=== PATIENT | female | born 1990 | race Caucasian/White ===

== ENCOUNTER 2017-01-28 00:45 | Observation (INO) | payer SELFPAY ==
[2017-01-28] VITALS (9 sets, daily range): BP systolic 118–150; BP diastolic 61–81; PULSE 61–85; RESP 14–20; TEMP 96.7–98.5; O2SAT 98–100
[~2017-01-28] VITALS: Ht 180.3 cm; Wt 118.0 kg
[~2017-01-28 00:45] MED LIST: Z.0.NO CURRENT MEDS
[2017-01-28] MEDS ORDERED: SODIUM CHLOR 0.9% 1000 ML INJ 1,000 ML IV SCH (02:48)
--- NOTE | 2017-01-28 02:52 | PD ---
HPI Chief Complaint: Abdominal Pain Time Seen by Provider: 02:48 Travel History International Travel<30 days: No Contact w/Intl Traveler<30days: No Traveled to known affect area: No History of Present Illness HPI 26-year-old female presents to the emergency department by private transportation for complaint of generalized abdominal pain 40 minutes. Symptoms began just prior to arrival to the emergency department. Patient's had nausea without vomiting. No hematemesis no coffee-ground emesis. Patient denies melena hematochezia or constipation or diarrhea. No dysuria frequency or urgency. Prior otherwise no surgeries. Patient states that she has been told the past that she might have gallbladder issues but did not have this evaluated further. Patient is visiting from [place]. Last menstrual period was 2 weeks ago and normal for her patient denies . Patient's had no fever chills. Patient is unable to identify exacerbating or alleviating factors. PFSH Past Medical History Narrative Medical Gallbladder disease, tonsillectomy; no tobacco use; nursing notes reviewed Diminished Hearing: No Gastrointestinal Disorders: Yes (CHOLECYSTITIS) Tetanus Vaccination: Unknown ?: Not LMP: 01/17/17 : 1 Para: 1 Miscarriage: 0 : 0 Past Surgical History Section: Yes (2012) Tonsillectomy: Yes (2002) Social History Alcohol Use: No Tobacco Use: No Substance Use: No Allergies-Medications (Allergen,Severity, Reaction): Coded Allergies: Bactrim (Verified Allergy, Mild, 05/04/07) Reported Meds & Prescriptions Reported Meds & Active Scripts Active Reported No Current Meds (Miscellaneous Medication) Misc Review of Systems Except as stated in HPI: all other systems reviewed are Neg General / Constitutional: No: Fever, Chills HENT: No: Congestion Cardiovascular: No: Chest Pain or Discomfort Respiratory: No: Shortness of Breath Gastrointestinal: Positive: Nausea, Abdominal Pain, No: Vomiting Genitourinary: No: Dysuria, Flank Pain Musculoskeletal: No: Myalgias, Arthralgias Skin: No Rash Neurologic: No: Weakness Psychiatric: No: Anxiety Hematologic/Lymphatic: No: Lymph Node Enlargement Physical Exam Narrative GENERAL: Well-developed well-nourished female in no acute distress no respiratory distress with pallor. SKIN: Warm and dry. HEAD: Normocephalic. EYES: No scleral icterus. No injection or drainage. NECK: Supple, trachea midline. No JVD or lymphadenopathy. CARDIOVASCULAR: Regular rate and rhythm without murmurs, gallops, or rubs. RESPIRATORY: Breath sounds equal bilaterally. No accessory muscle use. GASTROINTESTINAL: Abdomen soft, diffusely tender to palpation without guarding or rebound, nondistended. MUSCULOSKELETAL: No cyanosis, or edema. BACK: Nontender without obvious deformity. No CVA tenderness. Data Data Last Documented VS Vital Signs Date Time Temp Pulse Resp B/P Pulse Ox O2 Delivery O2 Flow Rate FiO2 01/28/17 04:33 14 01/28/17 02:00 98.5 78 131/71 98 Room Air Orders Complete Blood Count With Diff (01/28/17 02:48) Comprehensive Metabolic Panel (01/28/17 02:48) Lipase (01/28/17 02:48) Urinalysis - C+S If Indicated (01/28/17 02:48) Ct Abd/Pel W Iv Contrast(Rout) (01/28/17 02:48) Iv Access Insert/Monitor (01/28/17 02:48) Ecg Monitoring (01/28/17 02:48) Oximetry (01/28/17 02:48) Ondansetron Inj (Zofran Inj) (01/28/17 03:00) Sodium Chlor 0.9% 1000 Ml Inj (Ns 1000 M (01/28/17 02:48) Sodium Chloride 0.9% Flush (Ns Flush) (01/28/17 03:00) Ed Urine Pregnancytest Poc (01/28/17 02:48) Hydromorphone Pf Inj (Dilaudid Pf Inj) (01/28/17 03:00) Urine Culture (01/28/17 03:30) Iohexol 350 Inj (Omnipaque 350 Inj) (01/28/17 05:25) Piperacil-Tazo 3.375 Gm Premix (Zosyn 3. (01/28/17 06:15) NPO (01/28/17 06:11) Us Abdomen Gallbladder (01/28/17 06:11) Us Pelvis Comp W Dop Transvag (01/28/17 06:11) Labs Laboratory Tests Test 01/28/17 01/28/17 03:30 03:40 Urine Color YELLOW Urine Turbidity CLOUDY Urine pH 5.0 Urine Specific [place] 1.031 Urine Protein TRACE mg/dL Urine Glucose (UA) NEG mg/dL Urine Ketones TRACE mg/dL Urine Occult Blood LARGE Urine Nitrite POS Urine Bilirubin NEG Urine Leukocyte Esterase NEG Urine RBC 10-14 /hpf Urine WBC 0-2 /hpf Urine Squamous Epithelial > 8 /hpf Cells Urine Calcium Oxalate Crystals MANY /hpf Urine Bacteria MANY /hpf Microscopic Urinalysis Comment CULTURE INDICATED White Blood Count 16.2 TH/MM3 Red Blood Count 4.79 MIL/MM3 Hemoglobin 12.6 GM/DL Hematocrit 37.2 % Mean Corpuscular Volume 77.7 FL Mean Corpuscular Hemoglobin 26.3 PG Mean Corpuscular Hemoglobin 33.8 % Concent Red Cell Distribution Width 13.2 % Platelet Count 287 TH/MM3 Mean Platelet Volume 7.1 FL Neutrophils (%) (Auto) 86.9 % Lymphocytes (%) (Auto) 8.0 % Monocytes (%) (Auto) 4.8 % Eosinophils (%) (Auto) 0.0 % Basophils (%) (Auto) 0.3 % Neutrophils # (Auto) 14.1 TH/MM3 Lymphocytes # (Auto) 1.3 TH/MM3 Monocytes # (Auto) 0.8 TH/MM3 Eosinophils # (Auto) 0.0 TH/MM3 Basophils # (Auto) 0.0 TH/MM3 CBC Comment DIFF FINAL Differential Comment Sodium Level 142 MEQ/L Potassium Level 3.4 MEQ/L Chloride Level 107 MEQ/L Carbon Dioxide Level 26.2 MEQ/L Anion Gap 9 MEQ/L Blood Urea Nitrogen 12 MG/DL Creatinine 0.68 MG/DL Estimat Glomerular Filtration 106 ML/MIN Rate Random Glucose 120 MG/DL Calcium Level 8.5 MG/DL Total Bilirubin 0.6 MG/DL Aspartate Amino Transf 75 U/L (AST/SGOT) Alanine Aminotransferase 45 U/L (ALT/SGPT) Alkaline Phosphatase 102 U/L Total Protein 7.1 GM/DL Albumin 3.3 GM/DL Lipase 180 U/L [facility] Medical Decision Making Medical Screen Exam Complete: Yes Emergency Medical Condition: Yes Medical Record Reviewed: Yes Interpretation(s) CBC & BMP Diagram 01/28/17 03:40 Last Impressions Abdomen/Pelvis CT 01/28/17 0248 Signed Impressions: Service Date/Time: Saturday, January 28, 2017 05:11 - CONCLUSION: 1. There are 2 findings in the right lower quadrant that potentially could be a source for pain. One of the findings is a right ovarian cystic lesion measuring 5.2 cm. The other is a mildly distended appendiceal tip containing high density material. There is questionable mild inflammation adjacent to these structures in the right lower quadrant. Suggest correlation for right lower quadrant pain or clinical findings which could indicate acute appendicitis. 2. There is a small volume of free fluid in the pelvis. 3. There is a lobulated fluid density structure abutting the right heart measuring 3.6 x 1.8 cm. Imaging features favor a pericardial cyst. Consider follow-up to confirm stability if no prior imaging studies are available. 4. Stones versus sludge is layering within the gallbladder. However, there are no inflammatory changes associated with the gallbladder. Abdi Holman MD Vital Signs Date Time Temp Pulse Resp B/P Pulse Ox O2 Delivery O2 Flow Rate FiO2 01/28/17 04:33 14 01/28/17 02:00 98.5 78 14 131/71 98 Room Air 01/28/17 00:55 97.6 75 15 118/61 100 01/28/17 00:52 98.1 85 20 123/78 99 Room Air Differential Diagnosis Abdominal pain, cholecystitis, choledocholithiasis, pancreatitis, peptic ulcer disease, gastritis, atypical kidney stones, Narrative Course IV access obtained specimens collected and sent for resulting imaging studies ordered patient drilling fluids specialist normal saline along with Dilaudid 0.5 mg IV and Zofran 4 mg IV Patient resting comfortably after IV Dilaudid waiting on lab results and imaging study CBC is automated differential shows leukocytosis with left shift also notes abnormal urinalysis however patient's pain greater than found by abnormal urinalysis; CT imaging study pending CT resulted at 5:55 AM concerning for appendicitis noted to have ovarian cyst gallbladder sludge; Zosyn 3.375 g IV piggyback ordered patient Nothing by mouth ; case discussed with on-call general surgeon @6:25 AM general surgery crest patient to be transferred to [facility] for appendectomy; patient informed of plan to defer any ultrasound studies and will send to [facility] for general surgery evaluation and appendectomy. Patient is agreeable with plan and understands need for transfer. Physician Communication Physician Communication @ [phone] discussed with Dr Hidalgo --> US; reviewed CT --send for appy Diagnosis Primary Impression: Abdominal pain Qualified Code: R10.9 - Abdominal pain, unspecified location Additional Impressions: Atypical appendicitis Ovarian cyst Qualified Code: N83.201 - Cyst of right ovary Admitting Information Admitting Physician Requests: Observation Selina Guerrero MD Jan 28, 2017 02:52
[2017-01-28] MEDS ORDERED: HYDROmorphone HCL PF 1 MG/ML VIAL IV PUSH ONE (03:00)
[2017-01-28] MEDS ORDERED: ONDANSETRON HCL 4 MG/2 ML VIAL IVP ONE (03:00)
[2017-01-28] MEDS ORDERED: SODIUM CHLORIDE 0.9% FLUSH 10 ML FLUSH IV FLUSH PRN (03:00)
[2017-01-28 04:00] LABS: BLOOD, URINE LARGE (NEG); GLUCOSE,URINE NEG (NEG); KETONE, URINE TRACE mg/dL (NEG)
[2017-01-28 04:01] LABS: AUTOMATED NEUTROPHIL # 14.1 TH/MM3 (1.8-7.7); BASOPHIL % 0.3 % (0.0-2.0); HEMATOCRIT 37.2 % (35.0-46.0); LYMPHOCYTE # 1.3 TH/MM3 (1.0-4.8); MEAN CELL VOLUME 77.7 FL (80.0-100.0); MEAN CORPUSCULAR HEMOGLOBIN 26.3 PG (27.0-34.0); MEAN CORPUSCULAR HGB CONC 33.8 % (32.0-36.0); MONO % 4.8 % (0.0-8.0); NEUT % 86.9 % (16.0-70.0); PLATELET COUNT 287 TH/MM3 (150-450); RED BLOOD COUNT 4.79 MIL/MM3 (4.00-5.30); RED CELL DISTRIBUTION WIDTH 13.2 % (11.6-17.2); WHITE BLOOD COUNT 16.2 TH/MM3 (4.0-11.0)
[2017-01-28 04:02] LABS: HEMO FLAGS DIFF FINAL
[2017-01-28 04:05] LABS: NITRITE,URINE POS (NEG); URINE COLOR YELLOW (YELLW/STRAW)
[2017-01-28 04:06] LABS: BACTERIA, URINE MANY /hpf; CALCIUM OXALATE CRYSTALS,URINE MANY /hpf; COMMENT (UR) CULTURE INDICATED; CULTURE IF INDICATED CULTURE INDICATED; SQUAMOUS EPITHELIAL CELL URINE > 8 /hpf (0-5); WBC, URINE 0-2 /hpf (0-5)
[2017-01-28 04:08] LABS: CHLORIDE 107 MEQ/L (98-107); POTASSIUM 3.4 MEQ/L (3.5-5.1); SODIUM (NA) 142 MEQ/L (136-145)
[2017-01-28 04:11] LABS: ANION GAP 9 MEQ/L (5-15); BICARBONATE 26.2 MEQ/L (21.0-32.0); BLOOD UREA NITROGEN 12 MG/DL (7-18)
[2017-01-28 04:14] LABS: ALT (GPT) 45 U/L (10-53); AST (GOT) 75 U/L (15-37); GLOMERULAR FILTRATION RATE 106 ML/MIN (>89)
[2017-01-28 04:16] LABS: TOTAL BILIRUBIN ADULT 0.6 MG/DL (0.2-1.0)
[2017-01-28 04:17] LABS: ALKALINE PHOSPHATASE 102 U/L (45-117)
[2017-01-28] MEDS ORDERED: IOHEXOL 350 MG/ML 10 ML VIAL (for RAD DIAG) IV ONE (05:25)
--- NOTE | 2017-01-28 05:37 | RADHPO ---
EXAM DATE/TIME: 01/28/2017 05:11 [facility] COMPARISON: No previous studies available for comparison. INDICATIONS : Diffuse abdominal pain. IV CONTRAST: 95 cc Omnipaque 350 (iohexol) IV ORAL CONTRAST: No oral contrast ingested. RADIATION DOSE: 22.43 CTDIvol (mGy) MEDICAL HISTORY : None SURGICAL HISTORY : None. ENCOUNTER: Initial ACUITY: 1 day PAIN SCALE: 5/10 LOCATION: Abdomen. TECHNIQUE: Volumetric scanning of the abdomen and pelvis was performed. Using automated exposure control and ad justment of the mA and/or kV according to patient size, radiation dose was kept as low as reasonably achievable to obtain optimal diagnostic quality images. FINDINGS: LOWER LUNGS: The visualized lower lungs are clear. There is a lobulated fluid density structure abutting the right heart measuring 3.6 x 1.8 cm. LIVER: Homogeneous density without lesion. There is no dilation of the biliary tree. There are layering sto sara versus sludge within the gallbladder. No inflammatory changes are appreciated. SPLEEN: Normal size without lesion. PANCREAS: Within normal limits. KIDNEYS: Normal in size and shape. There is no mass, stone or hydronephrosis. ADRENAL GLANDS: Within normal limits. VASCULAR: There is no aortic aneurysm. BOWEL/MESENTERY: The stomach, small bowel, and colon demonstrate no acute abnormality. There is no free intraperitone al air. There is a small volume of free fluid in the pelvis. The proximal appendix appears normal but the distal tip of the appendix contains high density material and measures 8 mm in diameter. There i s questionable subtle induration of the fat in the right lower quadrant. ABDOMINAL WALL: Within normal limits. RETROPERITONEUM: There is no lymphadenopathy. BLADDER: No wall thickening or mass. REPRODUCTIVE: The uterus and left ovary demonstrate no abnormality. There is a cystic lesion associated with the ri ght ovary measuring 4.5 x 5.2 cm. INGUINAL: There is no lymphadenopathy or hernia. MUSCULOSKELETAL: No acute osseous abnormality is identified. CONCLUSION: 1. There are 2 findings in the right lower quadrant that potentially could be a source for pain. One of the findings is a right ovarian cystic lesion measuring 5.2 cm. The other is a mildly distended ap pendiceal tip containing high density material. There is questionable mild inflammation adjacent to t hese structures in the right lower quadrant. Suggest correlation for right lower quadrant pain or cli nical findings which could indicate acute appendicitis. 2. There is a small volume of free fluid in the pelvis. 3. There is a lobulated fluid density structure abutting the right heart measuring 3.6 x 1.8 cm. Imag ing features favor a pericardial cyst. Consider follow-up to confirm stability if no prior imaging st udies are available. 4. Stones versus sludge is layering within the gallbladder. However, there are no inflammatory change s associated with the gallbladder. Abdi Holman MD on January 28, 2017 at 5:28 Board Certified Radiologist. This report was verified electronically.
[2017-01-28] MEDS ORDERED: PIPERACIL-TAZO 3.375 GM PREMIX 50 ML IV ONE ×2 (06:15→14:30)
[2017-01-28] MEDS ORDERED: SODIUM CHLORIDE 0.9% FLUSH 10 ML FLUSH IVF PRN (06:45)
[2017-01-28] MEDS: SODIUM CHLORIDE 0.9% FLUSH 10 ML FLUSH IV FLUSH SCH ×2 (09:00→20:15)
[2017-01-28] MEDS ORDERED: DEXAMETHASONE SOD PHOS 4 MG/ML VIAL ONE (09:04)
[2017-01-28] MEDS ORDERED: ACETAMINOPHEN 1000 MG/100 ML VIAL IV ONE (09:04)
[2017-01-28] MEDS ORDERED: FAMOTIDINE 20 MG/2 ML VIAL ONE (09:05)
[2017-01-28] MEDS ORDERED: MIDAZOLAM HCL 2 MG/2 ML VIAL ONE ×2 (09:16→13:58)
--- NOTE | 2017-01-28 11:44 | MH ---
cc: JANNTE FRIEND M.D. DATE OF ADMISSION: 01/28/2017 REASON FOR ADMISSION Right-sided abdominal pain. HISTORY OF PRESENT ILLNESS The patient the 26-year-old female who presented having generalized abdominal pain for about 40 minutes yesterday evening she had nausea but then did report some vomiting. She had normal bowel movement on Monday. She reports that the pain is now on the right side of her abdomen. She did have a previous episode 2 years ago of epigastric pain and was told she should have her gallbladder out but did not have this performed as no other workup was done. She states that this pain is not in the epigastrium but is mostly on the right side but started out as generalized. The patient has had no problems with pelvic pain at any time she denies previous problems with PID or sexually transmitted diseases. Her LMP was 2 weeks ago and was normal for her. For her. PAST MEDICAL HISTORY: past medical history is significant for many years ago and tonsillectomy as a child. SOCIAL HISTORY: She does not smoke and alcohol. Does not drink. 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 PAST SURGICAL HISTORY: was in 2012 and tonsillectomy was not 2003. ALLERGIES BACTRIM MEDICATIONS: She is not currently on any medications. REVIEW OF SYSTEMS Review of systems is negative except as stated in HPI. Specifically; GENERAL: No fever or chills. HEAD, EYES, EARS, NOSE, AND THROAT: No congestion or sputum production. CARDIOVASCULAR SYSTEM: No chest pain or discomfort. RESPIRATORY: No shortness of breath or wheezing. GASTROINTESTINAL: is positive as indicated above. GENITOURINARY: No dysuria, flank pain or history of stones. MUSCULOSKELETAL: No myalgias or arthralgias. SKIN: No pruritus or rash. NEUROLOGIC: No weakness, diplopia, dizziness. PSYCHIATRIC: No anxiety or depression. HEMATOLOGIC: No lymph node enlargement. PHYSICAL EXAMINATION: IN GENERAL: The physical exam reveals an obese female in no acute distress. VITAL SIGNS: Blood pressure 102/78, pulse 71, respirations 22 and 98% sat on room air. Previous temperature was 97.4 sclerae anicteric. CHEST: Chest is clear to auscultation. CARDIOVASCULAR SYSTEM: Cardiac exam reveals regular rate and rhythm. ABDOMEN: The abdomen is soft with tenderness on the right side from the mid abdomen down into the right lower quadrant and the periumbilical region. There is no epigastric tenderness. There is a small amount of left lower quadrant pain without guarding. I cannot palpate any hernias. Pulses are present throughout. NEUROLOGIC: Exam is nonfocal. LABORATORY VALUES: The laboratory values demonstrate WBCs of 16.2, hemoglobin is 12.6, platelets at 187,000. Electrolytes, potassium is slightly low at 3.40 and creatinine are normal at 12 and 0.68, glucose is elevated at 120, AST is slightly elevated at 75, ALT is 45, alk phos 102, total bilirubin 0.6. ASSESSMENT Right-sided abdominal pain with possible appendicitis vs ovarian cyst symptoms. I have discussed options with the patient including continued observation versus laparoscopy with laparoscopic appendectomy. I have discussed risks of surgery including but not limited to bleeding, infection, need for drainage with abscess formation, adhesion formation and need for reoperation. I have discussed with the patient that she could be observed but if she does develop perforated appendicitis that this could cause additional complications including longer recovery time. She would rather proceed with surgery now to address issues and potentially have a expeditious discharge at a sooner time. Rather then with nonoperative management. MD SUDHEER Norman/curtis /10:58 AM /11:14 AM MTDEthan
[2017-01-28] MEDS ORDERED: KETOROLAC TROMETHAMINE 60 MG/2 ML (IM) VIAL IM ONE (12:00)
[2017-01-28] MEDS ORDERED: PROPOFOL 200 MG/20 ML AMP IV ONE (12:00)
[2017-01-28] MEDS ORDERED: SUGAMMADEX SODIUM 200 MG/2 ML VIAL IV PUSH ONE ×2 (12:00)
[2017-01-28] MEDS ORDERED: ONDANSETRON HCL 4 MG/2 ML VIAL IV PUSH ONE (12:00)
[2017-01-28] MEDS ORDERED: INSULIN HUMAN REGULAR 1,000 UNITS/10 ML VIAL SQ PRN (13:00)
[2017-01-28] MEDS ORDERED: LACTATED RINGER'S 1000 ML IV PRN (13:00)
[2017-01-28] MEDS ORDERED: SODIUM CHLORID 0.9% 500 ML IV PRN (13:00)
[2017-01-28] MEDS ORDERED: LACTATED RINGER'S 1000 ML INJ 1,000 ML IV SCH (13:00)
[2017-01-28] MEDS ORDERED: METOPROLOL TARTRATE 25 MG TAB PO PRN (13:00)
[2017-01-28] MEDS ORDERED: BUPIVACAINE/EPINEPHRINE 0.5% PF 30 ML VIAL ONE (14:06)
--- NOTE | 2017-01-28 15:41 | HHI.PR ---
Immediate Post Op Note Procedure Date: Jan 28, 2017 Pre Op Diagnosis: abdominal and pelvic pain r/o appendicitis Post Op Diagnosis: hemoperitoneum secondary to ruptured LEFT ovarian cyst Surgeon: Oseas Carrasquillo Visual Lead(s): bria Procedure: diagnostic laparoscopy, lap appy, evacuation of hemoperitoneum Findings: 100 cc blood from cyst, slightly thickened distal appendix Specimen(s) removed: appendix Anesthesia: General Drains: None IVF Patient to: PACU Patient Condition: Good Oseas Carrasquillo MD Jan 28, 2017 15:41
[2017-01-28] MEDS ORDERED: ONDANSETRON HCL 4 MG/2 ML VIAL IV PRN (15:45)
[2017-01-28] MEDS ORDERED: NALOXONE HCL 0.4 MG/ML AMP IV PRN (15:45)
[2017-01-28] MEDS ORDERED: ACETAMINOPHEN/HYDROcodone 325 MG/5 MG TAB PO PRN ×2 (15:45)
[2017-01-28] MEDS ORDERED: SODIUM CHLORIDE 0.9% FLUSH 5 ML FLUSH IVF PRN (15:45)
[2017-01-28] MEDS ORDERED: KETOROLAC TROMETHAMINE 30 MG/ML (IVP) VIAL IVP PRN (15:45)
[2017-01-28] MEDS ORDERED: MORPHINE SULFATE 8 MG/ML INJ IV PUSH PRN (15:45)
[2017-01-28] MEDS ORDERED: Post-op Orders (for Pharmacy) MISC XX ONE (15:45)
[2017-01-28] MEDS ORDERED: diphenhydrAMINE HCL 25 MG CAP PO PRN (15:45)
[2017-01-28] MEDS ORDERED: fentaNYL CITRATE 250 MCG/5 ML AMP ONE (15:54)
[2017-01-28] MEDS: SODIUM CHLOR 0.9% 1000 ML INJ 1,000 ML IV SCH (16:15)
[2017-01-28] MEDS ORDERED: DO NOT ADM ANY ANTICOAGULANT DRUGS PRN (17:00)
[2017-01-28 17:29] LABS: CHLAMYDIA PCR NOT DETECTED (NOT DETECT); NEISSERIA PCR NOT DETECTED (NOT DETECT)
[2017-01-28] MEDS: SODIUM CHLORIDE 0.9% FLUSH 5 ML FLUSH IVF SCH (21:26)
[2017-01-28] MEDS: MORPHINE SULFATE 4 MG/ML INJ IV PUSH PRN (22:17)
[2017-01-29] VITALS: BP 104/55; PULSE 72; RESP 18; TEMP 97.2; O2SAT 97
[2017-01-29] MEDS: SODIUM CHLOR 0.9% 1000 ML INJ 1,000 ML IV SCH ×2 (01:36→08:04)
[2017-01-29 04:00] VITALS: BP 114/56; PULSE 77; RESP 16; TEMP 96.1; O2SAT 97
[2017-01-29] MEDS: SODIUM CHLORIDE 0.9% FLUSH 5 ML FLUSH IVF SCH (07:00)
[2017-01-29 07:51] VITALS: BP 119/62; PULSE 70; RESP 17; TEMP 96.2; O2SAT 100
[2017-01-29] MEDS: SODIUM CHLORIDE 0.9% FLUSH 10 ML FLUSH IV FLUSH SCH (08:01)
[2017-01-29] MEDS: MORPHINE SULFATE 4 MG/ML INJ IV PUSH PRN (09:24)
[2017-01-29] MEDS ORDERED: NORC5TAB PO (10:00)
--- NOTE | 2017-01-29 10:52 | HHI.PR ---
Subjective Subjective Notes tolerating diet, no fevers Objective Vitals/I&O Vital Signs Date Time Temp Pulse Resp B/P Pulse Ox O2 Delivery O2 Flow Rate FiO2 01/29/17 07:51 96.2 70 17 119/62 100 01/28/17 18:43 21 01/28/17 16:23 Room Air 01/28/17 15:49 6 Labs Date/Time Procedure Status Source Growth 01/28/17 03:30 Urine Culture - Preliminary Resulted Urine Clean Catch Gram Negative [place] Cardiovascular: Regular Lungs: Clear Abdomen: Other (incisions c/d/i, incisional tenderness) A/P Assessment and Plan POD 1 Lap appy, ruptured ovarian cyst PLAN OOB Reg diet pain control ok to d/c home Hubert Yanez MD Jan 29, 2017 10:52
--- NOTE | 2017-02-01 08:45 | MP ---
cc: KEATON CHAKRABORTY M.D. DATE OF SURGERY 01/28/2017 PREOPERATIVE DIAGNOSIS Pelvic and right lower quadrant abdominal pain, rule out appendicitis. POSTOPERATIVE DIAGNOSIS 1. Pelvic and right lower quadrant abdominal pain, rule out Appendicitis. 2. Ruptured left ovarian cyst with hemoperitoneum. 3. Slightly dilated appendiceal tip. PROCEDURE PERFORMED 1. Diagnostic laparoscopy 2. Laparoscopic appendectomy 3. Evacuation of hemoperitoneum SURGEON Keaton Chakraborty MD [employer] OPERATOR Ivone ANESTHESIA General endotracheal COMPLICATIONS None INDICATIONS FOR THE PROCEDURE This Piper is a pleasant 26-year-old female who presented to [facility] with complaints of abdominal and right lower quadrant abdominal pain. She was seen by Dr. Hidalgo. CT scan of the abdomen and pelvis was equivocal with a dilated appendix, as well as a large right ovarian cyst. There was also a small to moderate amount of free fluid. Surgical consultation was requested. The patient was seen and evaluate Dr. Hidalgo. Based on his physical exam, her history and CT imaging, he recommended diagnostic laparoscopy to rule out appendicitis. The risks and benefit of the procedure were discussed with her by him and she was agreeable. Due to an OR scheduling conflict, Dr. Hidalgo asked if I can perform the surgery as there was a delay secondary to a Trauma emergency. I saw the patient and again discussed the risks and benefits and she was agreeable to allowing me to perform the surgery. INTRAOPERATIVE FINDINGS The patient had about 100 cc hemoperitoneum that was evacuated out of all four quadrants of the abdominal cavity. She had a blood clot on the left ovary indicating the ruptured ovarian cyst was on the left side. The right ovarian large cyst was intact and photographed. Appendix appeared normal, proximally and distally, it was thickened and enlarged. We went ahead and performed appendectomy based on this. DETAILS The patient was identified, brought to the operating room, placed supine on the operating table. After adequate general endotracheal anesthesia was achieved, the abdomen was prepped and draped in standard surgical fashion. The infraumbilical space anesthetized with quarter percent Marcaine. An infraumbilical incision was made. Dissection was carried down through the subcutaneous tissue to the midline fascia. The midline fascia was then incised sharply. A finger was then placed in the peritoneal cavity without difficulty. A blunt balloon trocar was inserted and the abdomen was insufflated to 15 mmHg using CO2 gas. Next, two 5 mm trocars were placed in the lower midline under direct vision. Upon initially entering the abdominal cavity, we immediately noted hemoperitoneum. The majority of the hemoperitoneum was down in the pelvis. Suction metal sander was used to retrieve the hemoperitoneum. Visualization of the right ovary revealed a large ovarian cyst which was intact. Visualization the left ovary revealed a blood clot on the anterior medial surface likely indicating a ruptured ovarian cyst. The blood clot was intact and there is no evidence of ongoing bleeding. The blood clot was briefly suctioned and did not bleed. We therefore left it undisturbed. Hemoperitoneum was evacuated out of the pelvis. Attention was now directed to the appendix. The appendix was noted be normal proximally, but distally was definitely thickened and larger. I went ahead and elected to perform appendectomy based on its enlarged distal portion. The mesentery was taken down with the harmonic scalpel to the level of the cecal base. 2-0 PDS Endoloops were then placed on the cecal base at the stump of the appendix. These were used to ligate the appendix. The appendix was then transected with a harmonic scalpel distal to the Endoloops. The appendix was placed into an Endopouch bag, brought out through the infraumbilical port and inspected. As visualized, the appendix was normal proximally, but distally was thickened and dilated. It was sent to pathology for analysis. Next, the abdominal cavity carefully visualized. The gallbladder was of normal size and color. There was a moderate amount of hemoperitoneum over the right lobe of the liver. This was irrigated and suctioned out. There was also a small amount of hemoperitoneum on the left lobe of the liver. This was irrigated and suctioned out. In total, we used four liters of irrigation to washout all hemoperitoneum. Once we did this, the fluid was clear. The stump was inspected and found be intact without evidence of leakage of blood or stool. Omentum was placed over the appendiceal stump. The left ovary was reinspected and blood clot was intact without evidence of bleeding. All ports were then removed under direct vision. The midline fascia repaired with 0 Vicryl in a [id number] fashion. Skin was closed with 4-0 Vicryl. The patient tolerated the procedure well, was awakened and brought to recovery in stable condition. MD HOWARD Barth /3:26 PM /8:32 AM
== END 2017-01-29 12:09 | disposition home or self-care (01) ==
LOC: PHED 00:45 → PHEDA 06:34 → UNDOADMOB 06:34 → HPAC 08:45 → PHEDA 08:45 → HPAC 11:40 → N06A 11:40 → UNDODISOB 01-29 12:09
PROVIDERS: ADMIT Surgery Trauma Surgery; ATTEND Surgery Trauma Surgery
DX: K38.8 Other specified diseases of appendix (principal); N83.201 Unspecified ovarian cyst, right side; N83.202 Unspecified ovarian cyst, left side; K66.1 Hemoperitoneum
CPT/HCPCS: 00840; 44970; 49322; 74177; 80053; 81001; 83690; 84703; 85025; 87077; 87086; 87186; 87210; 87491; 87591; 88304; 94150; 96361; 96374; 96375; 99285; G0378; J0131; J1100; J1170; J1885; J2250; J2270; J2405; J2543; J3010; J7030; Q9967